=== PATIENT | male | born 1995 | race Caucasian/White ===

== ENCOUNTER 2024-06-10 07:16 | Emergency (ER) | payer SELFPAY ==
[~2024-06-10] VITALS: Ht 182.9 cm; Wt 75.0 kg
[2024-06-10 11:33] VITALS: BP 165/85; TEMP 98; O2SAT 99
== END 2024-06-10 11:40 | disposition home or self-care (01) ==
LOC: M ED 07:16
DX: S09.90XA Unspecified injury of head, initial encounter (principal); Y04.0XXA Assault by unarmed brawl or fight, initial encounter; F84.0 Autistic disorder; F41.9 Anxiety disorder, unspecified; Y92.009 Unspecified place in unspecified non-institutional (private) residence as the place of occurrence of the external cause; Y93.89 Activity, other specified; Y99.9 Unspecified external cause status

== ENCOUNTER → 2025-03-08 | Outpatient (REF) | payer OTHER, SELFPAY ==
[2025-03-08 18:28] LABS: ALT/SGPT 28 U/L (7.0-40); AST/SGOT 22 U/L (<34); CALCIUM LEVEL 9.3 MG/DL (8.5-10.1); CARBON DIOXIDE LEVEL 26 MMOL/L (20-31); CHLORIDE LEVEL 103 MMOL/L (98-107); CHOLESTEROL LEVEL 233 MG/DL (<200); CHOLESTEROL RISK RATIO 5.57 (<5); CREATININE FOR GFR 0.90 MG/DL (0.70-1.30); GLOMERULAR FILTRATION RATE > 90.0 (>60); LDL CHOLESTEROL 174.0 MG/DL (<100); NON-HDL-C 191.2 MG/DL; POTASSIUM SERUM 4.0 MMOL/L (3.5-5.1); SODIUM LEVEL 138 MMOL/L (136-145); TOTAL 25(OH) VITAMIN D 29.9 NG/ML (20.0-100.0); TRIGLYCERIDES LEVEL 86 MG/DL (<150)
[2025-03-08 18:55] LABS: ESTIMATED AVERAGE GLUCOSE 100.0 MG/DL (60-110)
[2025-03-08 18:58] LABS: HIV 1&2 SCREEN NEGATIVE (NEGATIVE)
[2025-03-08 19:06] LABS: HEPATITIS C VIRUS ABY INDEX < 0.02 INDEX (<0.8)
[2025-03-08 19:39] LABS: Trichomonas vaginalis (AMP) NOT DETECTED (NEGATIVE)
[2025-03-08 20:03] LABS: GC DNA AMPLIFICATION NEGATIVE (NEGATIVE)
== END ==
LOC: M LAB REF 16:39
PROVIDERS: ATTEND Physician Assistant
DX: Z11.9 Encounter for screening for infectious and parasitic diseases, unspecified (principal); R03.0 Elevated blood-pressure reading, without diagnosis of hypertension; E55.9 Vitamin D deficiency, unspecified